=== PATIENT | male | born 1960 | race Caucasian/White ===

== ENCOUNTER 2018-09-22 12:24 | Day surgery (SDC) | payer MEDICAID ==
[~2018-09-22] VITALS: Ht 175.3 cm; Wt 75.7 kg
[2018-09-22] MEDS ORDERED: LISI-600 PO (12:38)
[2018-09-22 13:04] VITALS: BP 140/88
[2018-09-22] MEDS ORDERED: LIDOcaine 1%/PF 5ML 10 MG/ML VIAL ONE (13:46)
[2018-09-22 14:05] VITALS: BP 149/91
[2018-09-22 14:20] VITALS: BP 132/82
[2018-09-22 14:45] VITALS: BP 149/85
== END 2018-09-22 14:45 | disposition home or self-care (01) ==
LOC: SSTAY O 12:24
PROVIDERS: ATTEND Radiology Diagnostic Radiology
DX: Z45.2 Encounter for adjustment and management of vascular access device (principal); C67.9 Malignant neoplasm of bladder, unspecified; I10 Essential (primary) hypertension
CPT/HCPCS: 36590; J2001; A6219

== ENCOUNTER 2023-04-22 10:59 | Day surgery (SDC) | payer MEDICAID ==
[~2023-04-22] VITALS: Ht 176.5 cm; Wt 68.0 kg
[2023-04-22] VITALS (19 sets, daily range): BP systolic 133–182; BP diastolic 49–92; PULSE 54–72; RESP 16–18; TEMP 98.6; O2SAT 97–99
[~2023-04-22 10:59] MED LIST: LISI20TA28 PO
[2023-04-22] MEDS ORDERED: LISI10TA27 PO (11:24)
[2023-04-22 11:57] LABS: BASOPHILS # (AUTO) 0.1 X10'3 (0-0.2); BASOPHILS % (AUTO) 0.8 % (0-1); EOSINOPHILS # (AUTO) 0.3 X10'3 (0-0.9); EOSINOPHILS % (AUTO) 3.1 % (0-6); HEMATOCRIT 38.3 % (42.0-52.0); HEMOGLOBIN 12.9 g/dl (14.0-17.9); LYMPHOCYTES # (AUTO) 1.7 X10'3 (1.1-4.8); LYMPHOCYTES % (AUTO) 19.9 % (21-51); MEAN CORPUSCULAR HEMOGLOBIN 34.5 PG (27.0-31.0); MEAN CORPUSCULAR HGB CONC 33.8 g/dL (33.0-36.5); MEAN CORPUSCULAR VOLUME 102.1 FL (78-98); MEAN PLATELET VOLUME 6.6 FL (7.4-10.4); MONOCYTES # (AUTO) 0.9 X10'3 (0-0.9); MONOCYTES % (AUTO) 10.7 % (2-12); NEUTROPHILS # (AUTO) 5.5 X10'3 (1.8-7.7); NEUTROPHILS % (AUTO) 65.5 % (42-75); PLATELET COUNT 339 X10'3 (140-440); RED BLOOD COUNT 3.75 X10'6 (4.70-6.10); RED CELL DISTRIBUTION WIDTH 14.7 % (11.5-14.5); WHITE BLOOD COUNT 8.4 X10'3 (4.5-11.0)
[2023-04-22 12:10] LABS: INR 0.9 INR; PROTHROMBIN TIME 10.1 SECONDS (9.0-12.0)
[2023-04-22] MEDS ORDERED: fentaNYL/PF 50MCG/1 ML 2ML syringe ONE (13:46)
[2023-04-22] MEDS ORDERED: midazolam 1 mg/ML 2ml injection ONE (13:46)
[2023-04-22] MEDS ORDERED: LIDOcaine 1% (10mg/ml) 2ml vial ONE (14:02)
[2023-04-22] MEDS ORDERED: gelatin sponge, absorbable (Gelfoam 12-7MM) sponge TP ONE (14:42)
[2023-04-22] MEDS ORDERED: HYDROcodone/acetaminophen 5mg/325mg tablet PO PRN ×2 (14:50)
== END 2023-04-22 17:00 | disposition home or self-care (01) ==
LOC: SSTAY O 10:59
PROVIDERS: ATTEND Radiology Vascular & Interventional Radiology
DX: R19.09 Other intra-abdominal and pelvic swelling, mass and lump (principal); C67.9 Malignant neoplasm of bladder, unspecified; C78.00 Secondary malignant neoplasm of unspecified lung; Z79.899 Other long term (current) drug therapy
CPT/HCPCS: 20206; 36415; 77012; 85025; 85610; J2250; J3010; J7030; 38505; A4615; J3490